=== PATIENT | female | born 1995 | race Caucasian/White ===

== ENCOUNTER 2016-09-04 11:18 | Emergency (ER) | payer SELFPAY ==
[2016-09-04 11:29] VITALS: BP 117/68
--- NOTE | 2016-09-04 12:04 | ER Document Report ---
ED Respiratory Problem - General Chief Complaint: Congestion Stated Complaint: CONGESTION Mode of Arrival: Ambulatory Information source: Patient TRAVEL OUTSIDE OF THE [place] IN LAST 30 DAYS: No - HPI Patient complains to provider of: Other - Congestion Notes: Patient arrives with complaints of nasal congestion, scratchy throat and sinus congestion for the last 5 months. She states that it has gotten worse here recently. She'll she had a fever last week. She states that her drainage has now become green in color. She denies any nausea, vomiting, diarrhea. No chest pain or shortness breath. No abdominal pain. No rashes. She has tried various ihqe-vnc-nzxmagc remedies without any relief. He is not seen a physician or an ENT for this problem. - Related Data Allergies/Adverse Reactions: No Known Allergies Allergy (Verified 09/04/16 11:26) Past Medical History - Social History Smoking Status: Former Smoker Chew tobacco use (# tins/day): No Frequency of alcohol use: None Drug Abuse: None Family History: Reviewed & Not Pertinent Patient has suicidal ideation: No Patient has homicidal ideation: No Renal/ Medical History: Denies: Hx Peritoneal Dialysis Psychiatric Medical History: Reports: Hx Bipolar Disorder Surgical Hx: Negative - Immunizations Hx Diphtheria, Pertussis, Tetanus Vaccination: No Review of Systems - Review of Systems -: Yes All other systems reviewed and negative Physical Exam - Vital signs Vitals: Temp Pulse Resp BP Pulse Ox 98.6 F 89 20 117/68 99 09/04/16 11:28 09/04/16 11:28 09/04/16 11:28 09/04/16 11:28 09/04/16 11:28 - Notes Notes: GENERAL: alert, cooperative, nontoxic, no distress. HEAD: normocephalic, atraumatic EYES: conjunctiva pink without discharge, no external redness or swelling. EARS: no external swelling, no external redness, no mastoid redness, swelling, tenderness. Ear canals are clear without swelling or drainage. TMs pearly swartz , no redness, no bulging, normal landmarks, no perforation. NOSE: atraumatic, no external swelling. Green drainage noted. Erythema to the nasal passages nasal turbinates. MOUTH/THROAT: mucous membranes moist and pink, posterior pharynx without erythema, swelling, exudate. No trismus or drooling. NECK: soft, supple, full range of motion, no meningismus. CHEST: no distress, lungs clear and equal throughout. No wheezing, rales, rhonchi. CARDIAC: regular rate and rhythm, no murmur, normal capillary refill, normal pulses. No peripheral edema noted. BACK: full range of motion, no CVA tenderness. EXTREMITIES: full range of motion of all extremities. No redness, no swelling. NEURO: alert and oriented -3, no focal deficits, full range of motion of all extremities. PYSCH: appropriate mood, affect. Patient is cooperative. SKIN: pink, warm, dry, no rash. Course - Re-evaluation Re-evalutation: 09/04/16 12:00 Patient's nontoxic. Stable vitals. The patient's had sinus congestion for over 5 months now. Things are getting worse she now has green drainage and she was running a fever last week. The fact that she's had symptoms for so long, I will treat her for sinusitis as well as give her prescriptions for Flonase. She was instructed to an pbhi-ltq-lohxidm antihistamine such as Claritin or Zyrtec. I will also refer her to ENT due to the fact that she's had some congestion for such a long period of time. The patient is noted to have elevated blood pressure during today's emergency department visit. The patient was informed of this finding. The patient was instructed that this may be related to pre-hypertension and requires further evaluation with a primary care provider. The patient has no hypertensive symptoms at this time. - Vital Signs Vital signs: Temp Pulse Resp BP Pulse Ox 98.6 F 89 20 117/68 99 09/04/16 11:28 09/04/16 11:28 09/04/16 11:28 09/04/16 11:28 09/04/16 11:28 Discharge - Discharge Clinical Impression: Sinusitis Qualifiers: Sinusitis location: maxillary Chronicity: chronic Qualified Code(s): J32.0 - Chronic maxillary sinusitis Condition: Stable Disposition: HOME, SELF-CARE Instructions: Sinusitis ([facility]) Additional Instructions: Take medications as prescribed. Take an ynag-prw-fmdzpxt antihistamine such as Claritin or Zyrtec as directed on the package. Drink plenty of fluids. Follow- up with ENT at the next available appointment. Follow-up sooner for increased pain, fever, swelling, difficulty breathing or swallowing, or any further concerns. Prescriptions: Amoxicillin 875 mg PO BID #20 tablet Fluticasone Propionate [Flonase Nasal [place] 50 Mcg/[place] 16 gm] 2 sprays NASL Q12 #1 inhaler Referrals: JOE HUNT MD [ACTIVE STAFF] - Follow up as needed RIAZ PELLETIER MD [OFFICER CAPTAIN] - Follow up as needed SILVESTRE BAKER MD [OFFICER CAPTAIN] - Follow up as needed GENEVA CORLEY MD [OFFICER CAPTAIN] - Follow up as needed
== END 2016-09-04 12:08 | disposition home or self-care (01) ==
LOC: ER 11:18
DX: J32.0 Chronic maxillary sinusitis (principal); R09.81 Nasal congestion; Z87.891 Personal history of nicotine dependence
CPT/HCPCS: 99283